=== PATIENT | female | born 1990 | race Caucasian/White ===

== ENCOUNTER 2023-06-22 15:29 | Emergency (ER) | payer SELFPAY ==
[2023-06-22 16:25] LABS: CORONAVIRUS COVID-19 NAA NEGATIVE (NEGATIVE); INFLUENZA A NAA NEGATIVE (NEGATIVE); RESPIRATORY SYNCYTIAL VIR NAA NEGATIVE (NEGATIVE)
[2023-06-22 16:28] LABS: BASOPHILS PERCENT AUTO 0.5 % (0.0-1.0); HEMATOCRIT 40.6 % (37.0-47.0); HEMOGLOBIN 13.5 gm/dl (12.0-16.0); IMMATURE GRAN ABSOLUTE AUTO 0.03 K/mm3 (0.00-0.05); IMMATURE GRAN PERCENT AUTO 0.4 % (0.0-0.4); LYMPHOCYTES ABSOLUTE AUTO 1.9 K/mm3 (1.0-4.8); LYMPHOCYTES PERCENT AUTO 23.2 % (24.0-44.0); MEAN CORPUSCULAR HEMOGLOBIN 28.7 pg (28.0-32.0); MEAN CORPUSCULAR HGB CONC 33.3 g/dl (32.0-36.0); MEAN CORPUSCULAR VOLUME 86.4 fl (83.0-99.0); MEAN PLATELET VOLUME 10.4 fl (9.4-12.3); MONOCYTES ABSOLUTE AUTO 0.7 K/mm3 (0.0-0.8); NEUTROPHILS ABSOLUTE AUTO 5.5 K/mm3 (1.8-7.7); NEUTROPHILS PERCENT AUTO 67.9 % (41.0-71.0); PLATELET COUNT,PLT 217 K/mm3 (150-400); WHITE BLOOD CELL COUNT,WBC 8.09 K/mm3 (3.9-11.3)
[2023-06-22 16:48] LABS: A/G RATIO 1.1 (1-2); ANION GAP 11.9 (5-15); BILIRUBIN TOTAL 0.5 mg/dL (0.2-1.0); BUN/CREATININE RATIO 11.4 (14-18); C-REACTIVE PROTEIN 0.1 mg/dL (<0.30); CALCIUM 9.4 mg/dL (8.5-10.1); CREATININE 0.7 mg/dL (0.55-1.02); EST CRCL DRUG DOSING (CG) 122.46 mL/min; POTASSIUM,K 2.9 mEq/L (3.5-5.1); PROTEIN TOTAL,TP 7.8 g/dl (6.4-8.2)
[2023-06-22] MEDS: Sodium Chloride 0.9% 10 ML Syringe FLUSH PRN (16:51)
[2023-06-22] MEDS: Sodium Chloride 0.9% 1,000 ML IV STA (16:52)
[2023-06-22] MEDS: Ondansetron 4 MG/2 ML SDV IVPUSH ONE (16:55)
[2023-06-22] MEDS: LORazepam 2 MG/ML SDV IVPUSH ONE (17:14)
[2023-06-22 18:18] LABS: APPEARANCE,URINE CLEAR (Clear); BILIRUBIN,URINE 2+ (Negative); COLOR,URINE DARK YELLOW (Yellow); GLUCOSE,URINE NEGATIVE (Negative); KETONES,URINE 4+ (Negative); LEUKOCYTE ESTERASE,URINE TRACE (Negative); NITRITE,URINE NEGATIVE (Negative); OCCULT BLOOD,URINE TRACE-INTACT (Negative); PROTEIN,URINE 1+ (Negative)
[2023-06-22 18:26] LABS: BACTERIA,URINE MODERATE /hpf (FEW); MUCUS,URINE MANY /hpf (FEW); RBC,URINE 0-5 /hpf (0-5)
[2023-06-22] MEDS: Potassium Chloride 20 MEQ Tab.ER PO ONE (18:40)
== END 2023-06-22 19:15 | disposition home or self-care (01) ==
LOC: JD.ED 15:29
DX: K52.9 Noninfective gastroenteritis and colitis, unspecified (principal); E66.9 Obesity, unspecified; Z88.6 Allergy status to analgesic agent; Z79.899 Other long term (current) drug therapy; Z68.38 Body mass index [BMI] 38.0-38.9, adult
CPT/HCPCS: 0241U; 36415; 80053; 81001; 83690; 84703; 85025; 86140; 96361; 96374; 96375; 99284; A9270; J2060; J2405; J3490; J7030